=== PATIENT | female | born 1960 | race Caucasian/White ===

== ENCOUNTER 2018-06-17 10:58 | Outpatient (CLI) | payer OTHER ==
--- NOTE | 2018-06-17 13:47 | RAD ---
FRONTAL VIEW ABDOMEN KUB: INDICATION: Abnormal findings on diagnostic imaging, abnormal findings including retroperitoneum. COMPARISON: No prior imaging comparison. FINDINGS: The bowel gas pattern is nonspecific. There is moderate fecal material in the colon. Metallic clips are seen at the medial right upper abdomen. There are several linear oriented and round calcificati ons of the pelvis, likely vascular in etiology. The upper abdomen is excluded from view. There is o sseous degenerative change, diffusely. IMPRESSION: 1. Nonspecific bowel gas pattern. 2. Moderate retained fecal material in the colon. POS: [facility]
--- NOTE | 2018-06-17 13:49 | ULT ---
ABDOMINAL ULTRASOUND: HISTORY: Cirrhosis and hepatitis. FINDINGS: Real-time imaging of the upper abdomen was performed. This shows the gallbladder to have been remove d. The common duct is in the 5 mm range. The liver measures 16.7 cm in length. No focal abnormalit ies. The spleen is 12.3 cm. Right and left kidneys are within normal limits of size and not obstructed. Incidental note is made of a small approximately 1 cm right renal cyst. The pancreas, abdominal aorta, and IVC regions are u nremarkable. IMPRESSION: 1. Mildly heterogeneous liver echotexture, but no focal lesions. This could be on the basis of alicia ent's known cirrhosis. 2. Suggestion of some mild splenomegaly. 3. Postop cholecystectomy change. POS: [facility]
== END 2018-06-17 10:59 | disposition home or self-care (01) ==
LOC: SCSULT 10:58 → ULT 10:59
PROVIDERS: ATTEND Family Medicine
DX: R91.8 Other nonspecific abnormal finding of lung field (principal); K59.00 Constipation, unspecified
CPT/HCPCS: 74018; 76700

== ENCOUNTER 2018-06-17 14:24 | Outpatient (CLI) | payer OTHER ==
--- NOTE | 2018-06-17 15:53 | BD ---
Exam: DEXA Bone Density 06/17/18 HISTORY: Postmenopausal screening for osteoporosis. FINDINGS: Lumbar Spine: BMD (g/cm2) T-Score: Z-Score: L1 0.996 0.1 1.0 L2 0.126 0.9 2.0 L3 1.187 0.9 2.1 L4 1.138 0.7 1.9 L1-L4 1.115 0.6 1.7 Femoral Neck: 0.613 -2.1 -1.0 Total Femur: 0.767 -1.4 -0.7 The ten year fracture risk for a major osteoporotic fracture is 13% and for hip fracture is 3.1%. Impression: Osteopenia. POS: [facility]
== END 2018-06-17 14:25 | disposition home or self-care (01) ==
LOC: BICMAMMO 14:24
PROVIDERS: ATTEND Family Medicine
DX: Z13.820 Encounter for screening for osteoporosis (principal); M51.36 Other intervertebral disc degeneration, lumbar region; M85.88 Other specified disorders of bone density and structure, other site
CPT/HCPCS: 77080

== ENCOUNTER 2018-09-10 14:06 | Observation (INO) | payer OTHER ==
[2018-09-10 15:05] LABS: ALT (SGPT) 27 U/L (8-55); AST (SGOT) 43 U/L (5-34); Alkaline Phosphatase 85 U/L (40-150); Anion Gap 17 mmol/L (10-20); BUN (Urea Nitrogen) 6 mg/dL (9.8-20.1); Calc. Creatinine Clearance 0 mL/min (70-130); Calcium 9.1 mg/dL (7.8-10.44); Carbon Dioxide 20 mmol/L (22-29); Chloride 92 mmol/L (98-107); Estimated GFR-MDRD 87; Globulin 3.9 g/dL (2.4-3.5); Glucose 88 mg/dL (70-105); Protein, Total 7.9 g/dL (6.0-8.3); Sodium 126 mmol/L (136-145)
[2018-09-10 15:12] LABS: Band 7 % (5-11); Eosinophils 3 % (0-10); Hemoglobin 15.1 g/dL (12.0-16.0); Lymphocytes 14 % (21-51); MDiff Complete? YES; Mean Corpuscular HGB CONC 35.4 g/dL (32.0-36.0); Mean Corpuscular Hemoglobin 32.9 pg (27.0-31.0); Mean Corpuscular Volume 93.1 fL (78.0-98.0); Mean Platelet Volume 7.7 fL (7.4-10.4); Monocytes 12 % (0-10); Neutrophil 56 % (42-75); Platelet Count 99 thou/uL (130-400); Platelet Morphology Comment Appears Decreased; RBC Distribution Width 13.4 % (11.5-14.5); Reactive Lymphocytes 8 % (0-10); Red Blood Cell (RBC) Count 4.58 mill/uL (4.20-5.40); White Blood Cell (WBC) Count 6.1 thou/uL (4.8-10.8)
[2018-09-10 15:13] LABS: Potassium 2.9 mmol/L (3.5-5.1)
[2018-09-10] MEDS ORDERED: Potassium Chloride 20 MEQ TAB ONE (15:58)
[2018-09-10] MEDS ORDERED: Magnesium Sulfate 2 GM/NS 0.9% 50 ML BAG ONE (15:58)
[2018-09-10 18:43] VITALS: BMI 17.9
[2018-09-10] MEDS ORDERED: Lorazepam 1 MG TAB PO PRN (20:54)
[2018-09-10] MEDS ORDERED: Nicotine 14 MG PATCH TD SCH (21:00)
[2018-09-10 22:05] LABS: Amphetamine Not Detected (NotDetected); Barbiturates Screen Not Detected (NotDetected); Benzodiazepine Screen Not Detected (NotDetected); Cocaine Metabolite Screen Not Detected (NotDetected); Medtox Control Line Valid? VALID (VALID); Medtox Reader # READER 1; Methadone Not Detected (NotDetected); Methamphetamine Not Detected (NotDetected); Opiate Screen Not Detected (NotDetected); Oxycodone Screen Not Detected (NotDetected); Phencyclidine (PCP) Not Detected (NotDetected); THC/Cannabinoid Screen Detected (NotDetected); Tricyclic Screen Not Detected (NotDetected)
[2018-09-10] MEDS ORDERED: Senokot S 8.6-50 MG TAB PO PRN (22:16)
[2018-09-10] MEDS ORDERED: Potassium Chloride 20 MEQ TAB PO SCH (22:30)
[2018-09-10] MEDS ORDERED: Multivitamins, Adult 10 ML, Folic Acid 1 MG, Thiamine HCl 100 MG in Dextrose 5 %-0.45 %... IV SCH (23:00)
[2018-09-10] MEDS ORDERED: clonazePAM 1 MG TAB PO SCH (23:30)
[2018-09-10] MEDS ORDERED: cloNIDine 0.1 MG TAB PO SCH (23:30)
[2018-09-10] MEDS ORDERED: Gabapentin 300 MG CAP PO SCH (23:30)
[2018-09-11] MEDS: PROVENTIL INHALER 6.7 G (200 INHALATIONS) INH SCH ×3 (01:47→12:01)
--- NOTE | 2018-09-11 02:23 | HP ---
PRIMARY CARE PHYSICIAN: Dr. Abebe. CHIEF COMPLAINT: Rash. HISTORY OF PRESENT ILLNESS: Ms. Espinosa is a 57-year-old female who presented to the emergency room today for evaluation of a rash to her lower extremities after being out in the sun camping, onset 5 to 6 days ago. The patient reports taking spironolactone. Also started on a new hep C medication about a week ago. The patient also has a history of cirrhosis. The patient was evaluated in the emergency room and was found to have sodium of 126, potassium of 2.9. The patient was subsequently admitted to the observation unit for further management. PAST MEDICAL HISTORY: Cirrhosis, hep C, hypertension, COPD. PAST SURGICAL HISTORY: None. PSYCH HISTORY: Anxiety. SOCIAL HISTORY: Drinks 5 drinks per day. Abuses marijuana, is a smoker, smokes half a pack per day. Lives at home alone. ALLERGIES: NONE. CURRENT MEDICATIONS: 1. Amlodipine 10 mg p.o. once a day. 2. Clonazepam 1 mg p.o. b.i.d. 3. Clonidine 0.1 mg t.i.d. 4. Gabapentin 300 mg p.o. t.i.d. 5. Potassium 20 mEq once a day. 6. Spironolactone-hydrochlorothiazide 25/25 mg once a day. 7. Tramadol 50 mg p.o. q.8 hours as needed. 8. Epclusa 400/100 mg once a day. REVIEW OF SYSTEMS: The patient reports a rash to lower extremities for the past 4 to 5 days. Denies any other symptoms. All other systems have been reviewed and are negative unless mentioned in the HPI. PHYSICAL EXAMINATION: VITAL SIGNS: Blood pressure 133/85, pulse is 87, respirations are 19, temperature is 98.0, pulse ox is 96% on room air. CONSTITUTIONAL: The patient appears nontoxic, in no apparent distress. HEENT: Head is atraumatic and normocephalic. Eyes; eyelids are normal to inspection. Pupils are equal, round, and reactive to light. ENT; mucous membranes are moist. Mouth exam is normal. NECK: Normal range of motion. Trachea is midline. RESPIRATORY: Chest, breath sounds are clear. Chest movement is symmetrical. CARDIOVASCULAR: Regular heart rate and rhythm. Heart sounds are normal. ABDOMEN: Nontender. Bowel sounds are heard. BACK: Normal inspection. Normal range of motion. No CVA tenderness. EXTREMITIES: Upper extremity, normal inspection, normal range of motion. Radial pulses equal bilaterally. Lower extremity, include nonblanching petechiae rash on bilateral lower legs. Normal range of motion. Pedal pulses are equal bilaterally. NEUROLOGIC: The patient is oriented to person, place, and time. Speech is normal. No focal deficits. No sensory deficits. SKIN: Warm, dry. Rash is present. Petechiae nonblanching on bilateral legs. There is absence of rash over an area where a Band-Aid was placed earlier in the week. PSYCHIATRIC: Has a normal affect. EKG shows normal sinus rhythm. T-waves are normal. [place] is normal. PERTINENT LABORATORY DATA: Sodium is 126, potassium is 2.9, chloride is 92, carbon dioxide is 20, gap is 17, BUN is 6, creatinine is 0.7, GFR is 87, glucose is 88, calcium is 9.1, magnesium 1.5, bilirubin 2.0, AST is 43, ALT is 27, alkaline phosphatase is 85, protein is 7.9, albumin is 4.0, globulin 3.9. Urine tox screen is positive for cannabinoids. White blood cell count is 6.1, hemoglobin 15.1, hematocrit is 42.6, platelet count is 99. PLAN/ASSESSMENT: 1. Hypokalemia. The patient has been given a total of 40 mEq of potassium. ER record shows that physician ordered 40 mEq to be given in the ER, however, [employer], our system only has 20 mEq given. We went ahead and gave another 20 mEq. We will check potassium in the morning. 2. Hyponatremia. Started a banana bag, D5 half-normal saline with thiamine, multivitamins at 75 mL per hour. We will recheck sodium in the morning. We will check osmolarity. 3. Hypomagnesium. The patient was given 2 g of magnesium in the emergency room. We will check level in the morning and repeat as necessary. 4. History of chronic obstructive pulmonary disease. The patient appears stable, p.r.n. DuoNebs ordered as needed. The patient's inhalers have also been restarted. 5. Cirrhosis with hep C. The patient's medications have been restarted. We did not restart the spironolactone and hydrochlorothiazide, but the hep C medicine has been restarted. The patient is very adamant that she get her next scheduled dose. Liver enzymes will also be rechecked in the morning. Total bilirubin and AST were slightly elevated, we will recheck these. 6. Hypertension. Amlodipine will be restarted. We will hold the spironolactone and hydrochlorothiazide for now. We will trend blood pressure and we will add hypertensives as needed. 7. Deep venous thrombosis and gastrointestinal prophylaxis will be started. 8. Hospital course will be dependent on clinical findings. Job ID: [id number]
[2018-09-11 06:08] LABS: ALT (SGPT) 17 U/L (8-55); AST (SGOT) 39 U/L (5-34); Albumin 3.5 g/dL (3.5-5.0); Alkaline Phosphatase 76 U/L (40-150); Anion Gap 14 mmol/L (10-20); BUN (Urea Nitrogen) 9 mg/dL (9.8-20.1); Bilirubin, Total 1.7 mg/dL (0.2-1.2); Calc. Creatinine Clearance 57 mL/min (70-130); Calcium 8.6 mg/dL (7.8-10.44); Carbon Dioxide 22 mmol/L (22-29); Chloride 97 mmol/L (98-107); Estimated GFR-MDRD 79; Globulin 3.6 g/dL (2.4-3.5); Glucose 110 mg/dL (70-105); Magnesium 2.2 mg/dL (1.6-2.6); Phosphorus 3.6 mg/dL (2.3-4.7); Potassium 3.7 mmol/L (3.5-5.1); Protein, Total 7.1 g/dL (6.0-8.3); Sodium 129 mmol/L (136-145)
[2018-09-11 06:49] LABS: Eosinophils 2 % (0-10); Lymphocytes 48 % (21-51); MDiff Complete? YES; Mean Corpuscular Hemoglobin 33.8 pg (27.0-31.0); Mean Corpuscular Volume 99.5 fL (78.0-98.0); Mean Platelet Volume 7.3 fL (7.4-10.4); Monocytes 9 % (0-10); Neutrophil 41 % (42-75); Platelet Count 99 thou/uL (130-400); Platelet Morphology Comment Appears Decreased; RBC Distribution Width 14.4 % (11.5-14.5); RBC Morphology Normal; Red Blood Cell (RBC) Count 4.15 mill/uL (4.20-5.40); White Blood Cell (WBC) Count 5.7 thou/uL (4.8-10.8)
[2018-09-11] MEDS ORDERED: Potassium Chloride 20 MEQ TAB PO SCH (08:00)
[2018-09-11] MEDS ORDERED: Spironolactone 25 MG TAB PO SCH (08:15)
[2018-09-11 08:22] VITALS: BP 105/69; TEMP 98.2
[2018-09-11] MEDS ORDERED: Amlodipine 10 MG TAB PO SCH (09:00)
[2018-09-11] MEDS ORDERED: Famotidine 20 MG TAB PO SCH (09:00)
[2018-09-11] MEDS ORDERED: Gabapentin 300 MG CAP PO SCH (09:00)
[2018-09-11] MEDS ORDERED: SOFOSBUVIR PO SCH (09:00)
[2018-09-11] MEDS ORDERED: Enoxaparin Sodium 30 MG/0.3 ML SYRINGE SC SCH (09:00)
[2018-09-11] MEDS ORDERED: VELPATASVIR PO SCH (09:00)
[2018-09-11] MEDS ORDERED: clonazePAM 1 MG TAB PO SCH (09:00)
[2018-09-11] MEDS ORDERED: traMADol HCl 50 MG TAB PO PRN (09:48)
[2018-09-11] MEDS ORDERED: Calamine/Zinc Oxide 177 ML LOTION TP SCH (12:00)
[2018-09-11] MEDS ORDERED: cloNIDine 0.1 MG TAB PO SCH (21:00)
--- NOTE | 2018-09-11 21:04 | DIS ---
DATE OF ADMISSION: 09/10/2018 DATE OF DISCHARGE: 09/11/2018 ALLERGIES: NO KNOWN DRUG ALLERGIES. CHIEF COMPLAINT: Rash on left lower extremity. FINAL DIAGNOSES: 1. Hyponatremia, improved, in the setting of diuretic use. 2. Hypokalemia, resolved. 3. Cirrhosis with ongoing alcohol abuse and chronic hep C, which she is currently taking antivirals. 4. Hypertension. 5. Rash consistent with contact dermatitis. 6. Cannabinoid abuse. LABORATORY RESULTS: White blood cell count 7.5, hemoglobin 14, hematocrit 41.3 , MCV 99.5. Sodium 129, which is improved from 126, potassium 3.7, improved from 2.9. BUN is 9, creatinine 0.76, glucose 110. Serum osmolality is 274, calcium 8.6, bilirubin 1.7, AST 39, ALT 17, alkaline phosphatase 76. Tox screen positive for cannabinoids. IMAGING RESULTS: None. HOSPITAL COURSE: The patient is a 57-year-old female with past medical history significant for hypertension, cirrhosis, and chronic hep C, who presented to the hospital with complaints of a rash on the anterior portion of her left lower extremity. The patient stated that she had been out on a camping trip and had also been spending a lot of time in the sun. She had no other physical complaints other than her rash. She denies any chest pain, shortness of breath, or tremor. No focal or generalized weakness present. No fevers. Her lab work was significant in the ER for a sodium of 126 and a potassium of 2.9 on arrival. The patient was admitted for further lab work and electrolyte correction. She was given a banana bag overnight. Her hydrochlorothiazide was stopped, and she was monitored overnight. She has no complaints today. She does say that her rash is somewhat itchy, although it is nonpainful. PHYSICAL EXAMINATION: VITAL SIGNS: Blood pressure 105/69, pulse is 84. The patient is afebrile 98.2 , O2 saturation is 94% on room air. GENERAL: This is a thin female, in no acute distress. HEENT: Head, atraumatic and normocephalic. Extraocular movements intact. NECK: Supple. No lymphadenopathy. Trachea is midline. CV: S1 and S2. Regular rate and rhythm. No appreciable murmurs, rubs, or gallops. LUNGS: Regular respiratory rate and pattern, overall poor air movement and poor vesicular breath sounds. ABDOMEN: Soft, positive bowel sounds, nontender. EXTREMITIES: No edema. There is an erythematous rash present on the anterior portion of her left lower extremity from the dorsal aspect of the foot up to just below the knee. There is a demarcation almost a white stripe where the patient did have on a Band-Aid, and there is no rash present in this area. NEUROLOGIC: Cranial nerves 2 through 12 are intact. The patient is nonfocal. CONDITION AT DISCHARGE: Stable . DISCHARGE MEDICATIONS: The patient will continue her home medications which include: 1. Amlodipine 10 mg daily. 2. Clonazepam 1 mg p.o. b.i.d. 3. Clonidine 0.1 mg t.i.d. 4. Gabapentin 300 mg p.o. t.i.d. 5. Potassium 20 mEq once daily. 6. Tramadol 50 mg p.o. q.8. 7. Epclusa 400/100 mg once a day. 8. The patient's hydrochlorothiazide has been stopped. I have advised her that she may take spironolactone on an as-needed basis. DISCHARGE DISPOSITION: Home. PLAN: The patient will continue to use [id number] remedies for her rash. She has had calamine lotion applied in the hospital, which is improving her symptoms. Regarding her electrolyte abnormalities, she will follow up with her PCP in 1 week for repeat lab work. She sees Dr. Abebe on a regular basis. I have counseled her heavily on tobacco cessation as well as alcohol cessation. The patient is stable and will be discharged home today. Care discussed with Dr. Ortega, who agrees with the above. Job ID: [id number] [facility]
== END 2018-09-11 12:55 | disposition home or self-care (01) ==
LOC: SCSER 14:06 → 2SW 15:52
PROVIDERS: ADMIT Internal Medicine; ATTEND Internal Medicine
DX: E87.6 Hypokalemia (principal); E87.1 Hypo-osmolality and hyponatremia; E83.42 Hypomagnesemia; R21 Rash and other nonspecific skin eruption; B18.2 Chronic viral hepatitis C; I10 Essential (primary) hypertension; J44.9 Chronic obstructive pulmonary disease, unspecified; F41.9 Anxiety disorder, unspecified; F17.210 Nicotine dependence, cigarettes, uncomplicated; F12.10 Cannabis abuse, uncomplicated; K70.30 Alcoholic cirrhosis of liver without ascites; F10.10 Alcohol abuse, uncomplicated; Z79.899 Other long term (current) drug therapy; Z88.0 Allergy status to penicillin
CPT/HCPCS: 36415; 80053; 80306; 82550; 83735; 83930; 83935; 84100; 85025; 93005; 96361; 96365; 96366; 96367; G0378; J1650; J3411; J3475; J7042

== ENCOUNTER 2019-01-05 10:18 | Outpatient (CLI) | payer OTHER ==
--- NOTE | 2019-01-05 13:40 | ULT ---
HEPATIC SONOGRAM WITH DUPLEX EVALUATION: HISTORY: Chronic hepatitis. FINDINGS: Gallbladder is surgically absent. The common duct measures up to 1.2 cm diameter. No internal lesio ns are apparent. Liver is heterogeneous without focal abnormality. No free fluid. The spleen measures up to 10.7 cm. Good color and spectral Doppler flow within the hepatic and splenic arteries. Portal venous flow is towards the liver. Hepatic venous flow is towards the IVC. IMPRESSION: 1. Mildly dilated common duct for a post cholecystectomy patient. Central biliary obstruction is al ways the concern, although the fusiform appearance suggests that this may be related to a congenital biliary anomaly. Clinical correlation regarding the possibility of central biliary obstruction is re quired. Consider ERCP versus radionuclide hepatobiliary scan to evaluate for biliary patency. 2. No evidence of portal venous hypertension. POS: [facility]
== END 2019-01-05 10:19 | disposition home or self-care (01) ==
LOC: BICULT 10:18
PROVIDERS: ATTEND Physician Assistant Medical
DX: B18.2 Chronic viral hepatitis C (principal); K74.60 Unspecified cirrhosis of liver; I85.00 Esophageal varices without bleeding; D12.6 Benign neoplasm of colon, unspecified; Z90.49 Acquired absence of other specified parts of digestive tract
CPT/HCPCS: 76705